=== PATIENT | female | born 1950 ===

== ENCOUNTER → 2024-04-28 | Outpatient (REF) | payer MEDICARE ==
[2024-04-28 17:29] LABS: CHOLESTEROL RISK RATIO 1.9 (<5); HDL CHOLESTEROL 103.9 MG/DL (>40); LDL CHOLESTEROL 83.7 MG/DL (<100); NON-HDL-C 94.1 MG/DL
[2024-04-28 17:32] LABS: HEMOGLOBIN A1c 5.7 % (4.0-6.0)
== END ==
LOC: M LABDRAWC 16:43
PROVIDERS: ATTEND Internal Medicine
DX: E78.00 Pure hypercholesterolemia, unspecified (principal); R73.09 Other abnormal glucose